=== PATIENT | male | born 1970 | race Caucasian/White ===

== ENCOUNTER → 2019-02-23 | Outpatient (CLI) | payer OTHER ==
[~2019-02-23] MED LIST: ENOXAPARIN40 MG/0.1; HYDROCODON-ACE1 EAC5; MULTIVITAMINS1 EAC7 PO
== END ==
LOC: CAT 12:52
DX: Z13.6 Encounter for screening for cardiovascular disorders (principal); E78.00 Pure hypercholesterolemia, unspecified; I25.10 Atherosclerotic heart disease of native coronary artery without angina pectoris